=== PATIENT | male | born 1955 | race Caucasian/White ===

== ENCOUNTER → 2016-08-18 | Outpatient (CLI) | payer OTHER ==
[~2016-08-18] MED LIST: ADDE30TA PO; AMPH1TAB67 PO; GABA300C5 PO; GABA600T PO; GLUCTES12; GLUCTES27 TOP; INFL1INJ56 IM; INSU-171; LEVEMIR SQ; LIPI80TA PO; LISI10TA3 PO; LORA1TAB12 PO; NOVOLOGP2 SQ; PROZ40CA PO; TEMA30CA PO; [UNRECOGNIZED DRUG - CODE]
[2016-08-18 08:03] LABS: BASOPHIL # 0.1 TH/MM3 (0-0.2); BASOPHIL % 0.9 % (0.0-2.0); EOSINOPHIL # 0.2 TH/MM3 (0-0.4); EOSINOPHIL % 3.3 % (0.0-4.0); HEMATOCRIT 41.5 % (39.0-51.0); HEMO FLAGS DIFF FINAL; LYMPH % 29.4 % (9.0-44.0); MEAN CELL VOLUME 87.1 FL (80.0-100.0); MEAN CORPUSCULAR HEMOGLOBIN 30.4 PG (27.0-34.0); MEAN CORPUSCULAR HGB CONC 34.9 % (32.0-36.0); MONO % 8.5 % (0.0-8.0); NEUT % 57.9 % (16.0-70.0); PLATELET COUNT 293 TH/MM3 (150-450); RED BLOOD COUNT 4.76 MIL/MM3 (4.50-5.90); RED CELL DISTRIBUTION WIDTH 14.4 % (11.6-17.2); WHITE BLOOD COUNT 6.9 TH/MM3 (4.0-11.0)
[2016-08-18 08:42] LABS: ALKALINE PHOSPHATASE 84 U/L (45-117); ALT (GPT) 45 U/L (12-78); ANION GAP 8 MEQ/L (5-15); AST (GOT) 31 U/L (15-37); BLOOD UREA NITROGEN 19 MG/DL (7-18); CHLORIDE 102 MEQ/L (98-107); GLOMERULAR FILTRATION RATE 57 ML/MIN (>89); GLUCOSE,FASTING 61 MG/DL (74-99); HDL CHOLESTEROL 47.9 MG/DL (40.0-60.0); LDL CHOLESTEROL 173 MG/DL (0-99); POTASSIUM 4.1 MEQ/L (3.5-5.1); SODIUM (NA) 139 MEQ/L (136-145); TOTAL BILIRUBIN ADULT 0.5 MG/DL (0.2-1.0)
[2016-08-18 16:36] LABS: HEMOGLOBIN A1a 0.8 %; HEMOGLOBIN A1b 2.2 %; HEMOGLOBIN Ao 83.3 %; HEMOGLOBIN LA1C 1.8 %; HEMOGLOBIN P3 4.1 %
== END ==
LOC: CLAB 07:36
PROVIDERS: ATTEND Family Medicine
DX: L03.221 Cellulitis of neck (principal); E11.40 Type 2 diabetes mellitus with diabetic neuropathy, unspecified; I10 Essential (primary) hypertension
CPT/HCPCS: 36415; 80053; 80061; 83036; 84443; 85025

== ENCOUNTER → 2016-11-17 | Outpatient (CLI) | payer OTHER ==
[~2016-11-17] MED LIST changes: -INFL1INJ56 IM
[2016-11-17 08:18] LABS: HDL CHOLESTEROL 36.5 MG/DL (40.0-60.0); LDL CHOLESTEROL 102 MG/DL (0-99)
[2016-11-17 11:33] LABS: HEMOGLOBIN A1a 0.8 %; HEMOGLOBIN A1b 2.2 %; HEMOGLOBIN Ao 81.8 %; HEMOGLOBIN LA1C 2.6 %; HEMOGLOBIN P3 4.3 %
== END ==
LOC: CLAB 07:32
PROVIDERS: ATTEND Nurse Practitioner Family
DX: E78.5 Hyperlipidemia, unspecified (principal); E11.9 Type 2 diabetes mellitus without complications
CPT/HCPCS: 36415; 80061; 83036

== ENCOUNTER → 2017-02-16 | Outpatient (CLI) | payer OTHER ==
[~2017-02-16] MED LIST changes: -GABA300C5 PO
[2017-02-16 09:01] LABS: HDL CHOLESTEROL 34.6 MG/DL (40.0-60.0); LDL CHOLESTEROL 99 MG/DL (0-99)
[2017-02-16 17:26] LABS: HEMOGLOBIN A1a 0.8 %; HEMOGLOBIN A1b 2.1 %; HEMOGLOBIN Ao 82.9 %; HEMOGLOBIN LA1C 1.8 %
== END ==
LOC: CLAB 07:51
PROVIDERS: ATTEND Nurse Practitioner Family
DX: E11.9 Type 2 diabetes mellitus without complications (principal); E78.5 Hyperlipidemia, unspecified
CPT/HCPCS: 36415; 80061; 83036